=== PATIENT | female | born 1965 | race Caucasian/White ===

== ENCOUNTER → 2017-01-26 10:02 | Outpatient (CLI) | payer OTHER ==
[2009-10-21 21:51] VITALS: BMI 27.4
--- NOTE | 2017-01-27 13:48 | EC ---
PATIENT:VARINDER SOTO DATE OF SERVICE: 01/26/17 SEX: F MEDICAL RECORD: [id number] DATE OF : 67 LOCATION:[facility] AGE OF PATIENT: 51 ADMISSION DATE: 01/26/17 REFERRING PHYSICIAN: INTERPRETING PHYSICIAN: JOYCE SIMMS MD ECHOCARDIOGRAM REPORT ECHO CHARGES 4 ECHO COMPLETE CLINICAL DIAGNOSIS: CARDIAC MURMUR ECHOCARDIOGRAPHIC MEASUREMENTS (adult normal given) AC root (d.<3.7cm) 3.5 cm LV Septum d (<1.2 cm> 1.5 cm Valve Excursion 1.6 cm LV Septum (systole) 1.6 cm Left Atria (s.<4.0cm> 3.1 cm LVPW d(<1.2cm) 1.5 cm RV (d.<2.3cm) 2.4 cm LVPW (sytole) 1.6 cm LV diastole(<5.6CM) 3.7 cm MV E-F(>70mm/sec) cm LV systole 2.8 cm LVOT Diameter 1.8 cm MV exc.(>10mm) 0.90 cm Est.ejection fraction (50-75%) % Pericardial Effusion N DOPPLER: LVIT cm/sec A cm/sec E 66.0 cm/sec LA cm/sec RVSP 20 mmHg LVOT 97 cm/sec AOP1/2T m/s Asc. Ao 115 cm/sec RVOT 106 cm/sec RA cm/sec PA 123 cm/sec AV Gradient Peak 5.33 mmHg AV Mean 2.88 mmHg AV Area 2.8 cm MV Gradient Peak 3.23 mmHg MV Mean 1.30 mmHg MV Area cm COMMENTS: Wind Field Manager: Juliane DEMPSEY Plastics Scientist: 2 Dr. Zamora TAPE# PACS DATE OF SERVICE: 01/26/2017 Echocardiogram FINDINGS: 1. Left ventricular chamber size is within normal limits. Left ventricular systolic function is normal. Overall ejection fraction estimated at 60%. 2. Left atrium, right atrium and right ventricular chamber sizes are within normal limits. 3. Valvular structures have normal structure and motion. ECHOCARDIOGRAM REPORT [id number] VARINDER SOTO 4. Doppler interrogation reveals only trace tricuspid regurgitation. No other valvular insufficiency or stenosis. 5. No evidence of pericardial effusion or left ventricular thrombus. TRANSINT:[id number] Voice Confirmation ID: [id number] DOCUMENT ID: [id number] JOYCE SIMMS MD at 1348 CC: [id number] DICTATION DATE: 01/26/17 1243 MISSING PERSONS INVESTIGATOR: 01/26/17 1304 DEP CLI 01/26/17 [id number] [place] [id number]
== END | disposition home or self-care (01) ==
LOC: D.ECHO 10:02
DX: R01.1 Cardiac murmur, unspecified (principal)

== ENCOUNTER → 2018-08-27 14:21 | Outpatient (CLI) | payer OTHER ==
[2009-10-21 21:51] VITALS: BMI 27.4
--- NOTE | 2018-08-27 15:31 | NUR ---
time out was performed @15:01. Two patient identifiers were used. Pt allergic to morphine and hydrocodone. Pt on no blood thinners. Consent was obtained.
== END | disposition home or self-care (01) ==
LOC: D.RAD 09:00 → D.CT 10:30 → D.RAD 14:21
PROVIDERS: ATTEND Orthopaedic Surgery
DX: M75.121 Complete rotator cuff tear or rupture of right shoulder, not specified as traumatic (principal)